=== PATIENT | female | born 1990 | race Caucasian/White ===

== ENCOUNTER 2023-05-13 02:32 | Emergency (ER) | payer OTHER ==
[~2023-05-13] VITALS: Ht 154.9 cm; Wt 122.9 kg
[2023-05-13 02:40] VITALS: BP 129/85; PULSE 87; RESP 20; TEMP 98; O2SAT 100
[2023-05-13] MEDS ORDERED: methocarbamoL 500 MG TAB PO STA (06:38)
[2023-05-13] MEDS ORDERED: IBUPROFEN 600 MG TAB PO ONE (06:40)
[2023-05-13] MEDS ORDERED: ACETAMINOPHEN 325 MG TAB PO ONE (06:40)
[2023-05-13 06:53] VITALS: BP 112/71; PULSE 75; RESP 19; TEMP 98; O2SAT 100
[2023-05-13 07:05] LABS: BASOPHILS # (AUTO) 0.1 K/uL (0.00-0.22); BASOPHILS % (AUTO) 0.8 % (0.0-2.0); EOSINOPHILS # (AUTO) 0.3 K/uL (0-0.4); EOSINOPHILS % (AUTO) 3.6 % (0.0-4.0); HEMATOCRIT 33.1 % (36-48); HEMOGLOBIN 10.8 g/dL (12.0-16.0); LYMPHOCYTES # (AUTO) 1.8 K/uL (2.5-16.5); LYMPHOCYTES % (AUTO) 24.1 % (20.5-51.1); MEAN CORPUSCULAR HEMOGLOBIN 24 pg (27-31); MEAN CORPUSCULAR HGB CONC 33 g/dL (33-37); MEAN CORPUSCULAR VOLUME 73.8 fL (80-94); MONOCYTES # (AUTO) 0.5 K/uL (0.8-1.0); MONOCYTES % (AUTO) 6.1 % (1.7-9.3); NEUTROPHILS % (AUTO) 65.4 % (42.2-75.2); PLATELET COUNT (AUTO) 384 K/uL (140-450); RED BLOOD CELL COUNT(AUTO) 4.49 MIL/uL (4.20-5.40); RED CELL DISTRIBUTION WIDTH 17.3 % (11.6-13.7); WHITE BLOOD COUNT (AUTO) 7.6 K/uL (4.8-10.8)
[2023-05-13 07:29] LABS: ALANINE AMINOTRANSFERASE 56 U/L (12-78); ALBUMIN 3.5 g/dL (3.4-5.0); ALKALINE PHOSPHATASE 147 U/L (50-136); ANION GAP 13.5 (8-16); ASPARTATE AMINOTRANSFERASE 33 U/L (15-37); CALCIUM 8.7 mg/dL (8.5-10.1); CARBON DIOXIDE 24.4 mmol/L (21-32); CHLORIDE 105 mmol/L (98-107); CREATININE 0.7 mg/dL (0.6-1.3); GFR ARICAN-AMERICAN 125 mL/min (>90); GFR NON ARICAN-AMERICAN 103 mL/min (>90); GLUCOSE 97 mg/dL (74-106); POTASSIUM 3.9 mmol/L (3.5-5.1); SODIUM SERUM 139 mmol/L (136-145); TOTAL BILIRUBIN 0.6 mg/dL (0.0-1.0); TOTAL PROTEIN, SERUM 7.9 g/dL (6.4-8.2); UREA NITROGEN, BLOOD 13 mg/dL (7-18)
[2023-05-13] MEDS ORDERED: IBUP-2213 PO (07:57)
[2023-05-13] MEDS ORDERED: METH-1681 PO (08:15)
== END 2023-05-13 08:15 | disposition home or self-care (01) ==
LOC: MED 02:32
DX: R07.9 Chest pain, unspecified (principal); M79.601 Pain in right arm; R20.0 Anesthesia of skin; Z79.899 Other long term (current) drug therapy
CPT/HCPCS: 36415; 71045; 80053; 84484; 85025; 93005; 99285; Q0092

== ENCOUNTER 2023-09-28 11:12 | Emergency (ER) | payer OTHER ==
[~2023-09-28] VITALS: Ht 157.5 cm; Wt 123.4 kg
[~2023-09-28 11:12] MED LIST: IBUP-2213 PO; METH-1681 PO
[2023-09-28 11:25] VITALS: BP 133/77; PULSE 75; RESP 20; TEMP 97.9; O2SAT 97
[2023-09-28] MEDS ORDERED: PRED20TA5 PO (12:34)
[2023-09-28] MEDS ORDERED: ROBAC PO (12:34)
[2023-09-28] MEDS ORDERED: BENZ150C2 PO (12:34)
[2023-09-28 12:54] VITALS: BP 133/77; PULSE 75; RESP 20; TEMP 97.9; O2SAT 97
[2023-09-28 13:38] LABS: FLU A ANTIGEN negative (NEGATIVE); FLU B ANTIGEN negative (NEGATIVE)
== END 2023-09-28 12:55 | disposition home or self-care (01) ==
LOC: MED 11:12
DX: J06.9 Acute upper respiratory infection, unspecified (principal); R03.0 Elevated blood-pressure reading, without diagnosis of hypertension; Z20.822 Contact with and (suspected) exposure to COVID-19; J45.909 Unspecified asthma, uncomplicated; Z79.899 Other long term (current) drug therapy; Z79.1 Long term (current) use of non-steroidal anti-inflammatories (NSAID)
CPT/HCPCS: 99283